=== PATIENT | female | born 1960 | race Caucasian/White ===

== ENCOUNTER → 2023-03-19 | Day surgery (SDC) | payer OTHER ==
[~2023-03-19] MED LIST: Lidocaine 1% PF 5 ML VIAL ONE; Sodium Bicarbonate 2.5 MEQ/5 ML VIAL ONE
== END ==
LOC: ULT 12:35
PROVIDERS: ATTEND Internal Medicine
PROC: 07JN3ZZ Inspection of Lymphatic, Percutaneous Approach (ICD-10-PCS; principal; 2023-03-19)
DX: C80.1 Malignant (primary) neoplasm, unspecified (principal); C78.7 Secondary malignant neoplasm of liver and intrahepatic bile duct; K76.89 Other specified diseases of liver; K86.89 Other specified diseases of pancreas; R22.32 Localized swelling, mass and lump, left upper limb; Z98.51 Tubal ligation status; Z98.890 Other specified postprocedural states; Z87.59 Personal history of other complications of pregnancy, childbirth and the puerperium; Z79.899 Other long term (current) drug therapy
CPT/HCPCS: 10005; 88173; 88341; 88342

== ENCOUNTER 2023-04-05 10:09 | Day surgery (SDC) | payer MEDICARE ==
[2023-04-04 11:28] VITALS: BMI 28.4
[2023-04-05] MEDS ORDERED: Bupivacaine 0.25% HCL 30 ML VIAL ONE (12:16)
[2023-04-05] MEDS ORDERED: EPINEPHrine 1 MG/10 ML Abboject SYRINGE ONE (12:16)
[2023-04-05] MEDS ORDERED: Lidocaine 1% PF 5 ML VIAL ONE (12:16)
[2023-04-05] MEDS ORDERED: fentaNYL 50 mcg/mL 1 mL Vial ONE (12:32)
[2023-04-05] MEDS ORDERED: Midazolam HCl 2 mg/2 ml Vial ONE (12:32)
[2023-04-05] MEDS ORDERED: Ketorolac Tromethamine 30 MG/ML VIAL ONE (12:44)
[2023-04-05] MEDS ORDERED: PROPOFOL 200 MG/20 ML VIAL ONE (12:44)
[2023-04-05] MEDS ORDERED: Ondansetron PF 4 MG/2 ML Vial ONE (12:44)
== END 2023-04-05 14:02 | disposition home or self-care (01) ==
LOC: SDC 10:09
PROVIDERS: ATTEND Surgery
PROC: 0JH60WZ Insertion of Totally Implantable Vascular Access Device into Chest Subcutaneous Tissue and Fascia, Open Approach (ICD-10-PCS; principal; 2023-04-05)
DX: C56.1 Malignant neoplasm of right ovary (principal)
CPT/HCPCS: 36561; 71045; C1788; J3010; J0171; J1642; J1885; J2250; J2405; J2704; S0020

== ENCOUNTER 2023-06-04 08:51 | Outpatient (CLI) | payer MEDICARE ==
[2023-06-04] MEDS ORDERED: Iopamidol 370 76% 100 ML VIAL ONE (12:09)
== END 2023-06-04 08:52 | disposition home or self-care (01) ==
LOC: CT 08:51
PROVIDERS: ATTEND Internal Medicine
DX: C56.1 Malignant neoplasm of right ovary (principal); C22.9 Malignant neoplasm of liver, not specified as primary or secondary; R59.1 Generalized enlarged lymph nodes; K76.9 Liver disease, unspecified
CPT/HCPCS: 71260; 74177

== ENCOUNTER 2023-06-26 08:28 | Day surgery (SDC) | payer MEDICARE ==
[2023-06-26 08:51] LABS: INR-International Normal Ratio 0.9; PTT 30.1 sec (22.9-36.1)
[2023-06-26] MEDS ORDERED: Midazolam HCl 2 mg/2 ml Vial ONE (10:17)
[2023-06-26] MEDS ORDERED: Sodium Bicarbonate 2.5 MEQ/5 ML VIAL ONE (10:17)
[2023-06-26] MEDS ORDERED: fentaNYL 50 mcg/mL 1 mL Vial ONE (10:17)
[2023-06-26 12:52] VITALS: BP 125/80; BMI 29.1
[2023-06-26] MEDS ORDERED: FLU VACC QS2023-24(6MOS UP)/PF 60 MCG/0.5 ML SYRINGE IM ONE (13:15)
== END 2023-06-26 13:50 | disposition home or self-care (01) ==
LOC: CT 08:28
PROVIDERS: ATTEND Internal Medicine
DX: S24.114A Complete lesion at T11-T12 level of thoracic spinal cord, initial encounter (principal); C56.1 Malignant neoplasm of right ovary; C79.51 Secondary malignant neoplasm of bone; Z79.899 Other long term (current) drug therapy
CPT/HCPCS: 20225; 77012; 85610; 85730; 88333; 88334; 90686; G0008; 36415; 88112; 88307; 88342; 90471; J2250; J3010

== ENCOUNTER 2023-08-16 12:34 | Day surgery (SDC) | payer MEDICARE ==
[~2023-08-16 12:34] MED LIST changes: -Lidocaine 1% PF 5 ML VIAL ONE; +PEGFILGRASTIM-JMDB 6 MG/0.6 ML SYRINGE SQ SCH; -Sodium Bicarbonate 2.5 MEQ/5 ML VIAL ONE; +Sodium Chloride 0.9% 1,000 ML IV SCH
[2023-08-16 13:10] VITALS: BP 108/81; TEMP 98.5
[2023-08-16] MEDS ORDERED: PEGFILGRASTIM-JMDB 6 MG/0.6 ML SYRINGE ONE (14:01)
== END 2023-08-16 14:52 | disposition home or self-care (01) ==
LOC: ONC/OP 12:34
PROVIDERS: ATTEND Internal Medicine
DX: C56.1 Malignant neoplasm of right ovary (principal); R97.8 Other abnormal tumor markers
CPT/HCPCS: 96360; 96372; Q5108; J1642

== ENCOUNTER 2023-09-18 06:43 | Outpatient (CLI) | payer MEDICARE | END 2023-09-18 06:44 | disposition home or self-care (01) | LOC: CT 06:43 | PROVIDERS: ATTEND Internal Medicine | DX: C56.1 Malignant neoplasm of right ovary (principal); R97.1 Elevated cancer antigen 125 [CA 125]; R91.1 Solitary pulmonary nodule | CPT/HCPCS: 71260; 74177; J1642 ==

== ENCOUNTER 2023-11-05 11:33 | Outpatient (CLI) | payer MEDICARE | END 2023-11-05 11:34 | disposition home or self-care (01) | LOC: SCSMRI 11:33 | PROVIDERS: ATTEND Radiology Radiation Oncology | DX: C78.7 Secondary malignant neoplasm of liver and intrahepatic bile duct (principal); M53.9 Dorsopathy, unspecified; K76.9 Liver disease, unspecified; R60.0 Localized edema | CPT/HCPCS: 72157; 74183 ==

== ENCOUNTER 2024-02-20 06:39 | Outpatient (CLI) | payer OTHER | END 2024-02-20 06:40 | disposition home or self-care (01) | LOC: CT 06:39 | PROVIDERS: ATTEND Radiology Radiation Oncology | DX: C56.9 Malignant neoplasm of unspecified ovary (principal); C78.7 Secondary malignant neoplasm of liver and intrahepatic bile duct; K76.0 Fatty (change of) liver, not elsewhere classified; R59.0 Localized enlarged lymph nodes; R18.8 Other ascites | CPT/HCPCS: 71260; 74177; J1642 ==

== ENCOUNTER 2024-02-24 13:23 | Outpatient (CLI) | payer OTHER | END 2024-02-24 13:24 | disposition home or self-care (01) | LOC: ULT 13:23 | PROVIDERS: ATTEND Internal Medicine | DX: Z51.11 Encounter for antineoplastic chemotherapy (principal); C56.1 Malignant neoplasm of right ovary; I42.7 Cardiomyopathy due to drug and external agent; I51.9 Heart disease, unspecified; Z79.899 Other long term (current) drug therapy | CPT/HCPCS: 93306 ==

== ENCOUNTER 2024-05-20 09:15 | Outpatient (CLI) | payer OTHER ==
[2024-05-20] MEDS ORDERED: Iopamidol 370 76% 100 ML VIAL ONE (11:28)
== END 2024-05-20 09:16 | disposition home or self-care (01) ==
LOC: CT 09:15
PROVIDERS: ATTEND Internal Medicine
DX: C56.9 Malignant neoplasm of unspecified ovary (principal); R91.8 Other nonspecific abnormal finding of lung field; J90 Pleural effusion, not elsewhere classified; R59.0 Localized enlarged lymph nodes; N13.30 Unspecified hydronephrosis; K76.89 Other specified diseases of liver; K74.60 Unspecified cirrhosis of liver
CPT/HCPCS: 71260; 74177; J1642; Q9967

== ENCOUNTER 2024-06-03 09:32 | Outpatient (CLI) | payer OTHER | END 2024-06-03 09:33 | disposition home or self-care (01) | LOC: RAD 09:32 | PROVIDERS: ATTEND Internal Medicine | DX: R06.00 Dyspnea, unspecified (principal) | CPT/HCPCS: 71046 ==

== ENCOUNTER 2024-06-04 10:15 | Day surgery (SDC) | payer OTHER ==
[2024-06-04] MEDS ORDERED: Sodium Bicarbonate 2.5 MEQ/5 ML SDV ONE (10:52)
[2024-06-04] MEDS ORDERED: Lidocaine 1% PF 5 ML VIAL ONE ×2 (10:52→11:18)
== END 2024-06-04 12:15 | disposition home or self-care (01) ==
LOC: ULT 10:15
PROVIDERS: ATTEND Internal Medicine
PROC: 0W9G30Z Drainage of Peritoneal Cavity with Drainage Device, Percutaneous Approach (ICD-10-PCS; principal; 2024-06-04)
DX: R18.8 Other ascites (principal); C56.1 Malignant neoplasm of right ovary; Z98.51 Tubal ligation status; Z98.890 Other specified postprocedural states; F12.90 Cannabis use, unspecified, uncomplicated; Z79.899 Other long term (current) drug therapy
CPT/HCPCS: 49083

== ENCOUNTER 2024-06-05 12:30 | Day surgery (SDC) | payer OTHER ==
[2024-06-04 13:43] VITALS: BMI 26.6
[2024-06-05 15:50] LABS: Pleural Fluid, Protein 3.1 g/dL
[2024-06-05 16:16] LABS: Fluid, pH - Pleural Fld Greater than 7.500 (7.60 - 7.66)
[2024-06-05 16:44] LABS: RBC Count-Automated (BF) 832 /cu.mm; WBC/Nucleated-Auto (BF) 144 /cu.mm
[2024-06-05 17:52] LABS: BF Color Yellow; Body Fluid Source Thoracentesis Fluid; Clarity Hazy (Clear); Tube # EDTA
[2024-06-05 17:59] LABS: BF Segmented Neutrophils 9 %; Cell Count Non Hematic 59 %; Lymphocytes 32 %
== END 2024-06-05 14:35 | disposition home or self-care (01) ==
LOC: SDC 12:30
PROVIDERS: ATTEND Internal Medicine
PROC: 0W993ZZ Drainage of Right Pleural Cavity, Percutaneous Approach (ICD-10-PCS; principal; 2024-06-05)
DX: J90 Pleural effusion, not elsewhere classified (principal); C56.9 Malignant neoplasm of unspecified ovary; Z90.49 Acquired absence of other specified parts of digestive tract; Z98.890 Other specified postprocedural states; Z90.710 Acquired absence of both cervix and uterus; Z79.899 Other long term (current) drug therapy; R84.6 Abnormal cytological findings in specimens from respiratory organs and thorax
CPT/HCPCS: 32554; 71045; 82150; 82945; 83615; 83986; 84157; 84478; 85060; 87070; 87116; 87205; 87206; 88112; 88305; 88341; 88342; 89051

== ENCOUNTER 2024-06-25 12:51 | Day surgery (SDC) | payer OTHER ==
[2024-06-25] MEDS ORDERED: Lidocaine 1% PF 5 ML VIAL ONE (13:05)
[2024-06-25 13:28] LABS: INR-International Normal Ratio 1.2
[2024-06-25 13:29] LABS: PTT 36.2 sec (22.9-36.1)
== END 2024-06-25 14:15 | disposition home or self-care (01) ==
LOC: ULT 12:51
PROVIDERS: ATTEND Internal Medicine
PROC: 0W9G30Z Drainage of Peritoneal Cavity with Drainage Device, Percutaneous Approach (ICD-10-PCS; principal; 2024-06-25)
DX: R18.8 Other ascites (principal); C56.1 Malignant neoplasm of right ovary; Z98.51 Tubal ligation status; Z98.890 Other specified postprocedural states
CPT/HCPCS: 36415; 49083; 85610; 85730

== ENCOUNTER 2024-07-06 15:18 | Outpatient (CLI) | payer OTHER | END 2024-07-06 15:19 | disposition home or self-care (01) | LOC: RAD 15:18 | PROVIDERS: ATTEND Internal Medicine | DX: R06.00 Dyspnea, unspecified (principal) | CPT/HCPCS: 71046 ==

== ENCOUNTER → 2024-07-16 | Day surgery (SDC) | payer OTHER ==
[~2024-07-16] MED LIST changes: +Lidocaine 1% PF 5 ML VIAL ONE; -PEGFILGRASTIM-JMDB 6 MG/0.6 ML SYRINGE SQ SCH; -Sodium Chloride 0.9% 1,000 ML IV SCH
== END ==
LOC: ULT 12:29
PROVIDERS: ATTEND Internal Medicine
PROC: 0W9G30Z Drainage of Peritoneal Cavity with Drainage Device, Percutaneous Approach (ICD-10-PCS; principal; 2024-07-16)
DX: R18.8 Other ascites (principal); C56.1 Malignant neoplasm of right ovary
CPT/HCPCS: 49083

== ENCOUNTER 2024-07-28 06:47 | Outpatient (CLI) | payer OTHER | END 2024-07-28 06:48 | disposition home or self-care (01) | LOC: CT 06:47 | PROVIDERS: ATTEND Internal Medicine | DX: C56.1 Malignant neoplasm of right ovary (principal); R97.8 Other abnormal tumor markers; J90 Pleural effusion, not elsewhere classified; R91.8 Other nonspecific abnormal finding of lung field | CPT/HCPCS: 71260; 74177; J1642 ==

== ENCOUNTER → 2024-08-06 | Day surgery (SDC) | payer OTHER | LOC: ULT 12:22 | PROVIDERS: ATTEND Internal Medicine | PROC: 0W9G30Z Drainage of Peritoneal Cavity with Drainage Device, Percutaneous Approach (ICD-10-PCS; principal; 2024-08-06) | DX: R18.8 Other ascites (principal); C56.1 Malignant neoplasm of right ovary; D69.6 Thrombocytopenia, unspecified; N13.30 Unspecified hydronephrosis; C79.60 Secondary malignant neoplasm of unspecified ovary; Z98.51 Tubal ligation status; Z98.890 Other specified postprocedural states; Z79.899 Other long term (current) drug therapy; I08.3 Combined rheumatic disorders of mitral, aortic and tricuspid valves | CPT/HCPCS: 49083 ==

== ENCOUNTER 2024-08-13 12:33 | Outpatient (CLI) | payer OTHER | END 2024-08-13 12:34 | disposition home or self-care (01) | LOC: ULT 12:33 | PROVIDERS: ATTEND Urology | DX: N28.89 Other specified disorders of kidney and ureter (principal); N13.30 Unspecified hydronephrosis; R18.8 Other ascites | CPT/HCPCS: 76770 ==

== ENCOUNTER 2024-08-25 08:50 | Day surgery (SDC) | payer OTHER ==
[2024-08-25 09:00] LABS: #Basophils Less than 0.03 10x3/uL (0.0-0.2); #Eosinophils Less than 0.03 10x3/uL (0.0-0.7); %Basophils 0.4 % (0.0-1.0); %Eosinophils 0.2 % (0.0-10.0); %Lymphocytes 14.6 % (21.0-51.0); %Monocytes 14.4 % (0.0-10.0); %Neutrophils 70.2 % (42.0-75.0); Hematocrit 41.2 % (36.0-47.0); Hemoglobin 13.8 g/dL (12.0-16.0); Mean Corpuscular HGB CONC 33.5 g/dL (32.0-36.0); Mean Corpuscular Hemoglobin 35.1 pg (27.0-31.0); Mean Corpuscular Volume 104.8 fL (78.0-98.0); Mean Platelet Volume 10.4 fL (7.4-10.4); Platelet Count 164 10x3/uL (130-400); RBC Distribution Width 17.2 % (11.5-14.5); Red Blood Cell (RBC) Count 3.93 mill/uL (4.20-5.40)
[2024-08-25 09:12] LABS: INR-International Normal Ratio 1.1; PTT 31.9 sec (22.9-36.1); Prothrombin Time 14.4 sec (12.0-14.7)
[2024-08-25] MEDS ORDERED: Lidocaine 1% PF 5 ML VIAL ONE (10:07)
== END 2024-08-25 10:56 | disposition home or self-care (01) ==
LOC: ULT 08:50
PROVIDERS: ATTEND Internal Medicine
PROC: 0W9G3ZZ Drainage of Peritoneal Cavity, Percutaneous Approach (ICD-10-PCS; principal; 2024-08-25)
DX: R18.8 Other ascites (principal); G62.9 Polyneuropathy, unspecified; C56.1 Malignant neoplasm of right ovary; D69.6 Thrombocytopenia, unspecified; N13.30 Unspecified hydronephrosis; Z87.59 Personal history of other complications of pregnancy, childbirth and the puerperium; Z78.0 Asymptomatic menopausal state; Z90.49 Acquired absence of other specified parts of digestive tract; Z98.51 Tubal ligation status; Z79.899 Other long term (current) drug therapy
CPT/HCPCS: 49083; 85025; 85610; 85730

== ENCOUNTER 2024-09-04 09:10 | Outpatient (CLI) | payer OTHER | END 2024-09-04 09:11 | disposition home or self-care (01) | LOC: SCSMRI 09:10 | PROVIDERS: ATTEND Internal Medicine | DX: C56.1 Malignant neoplasm of right ovary (principal); R97.8 Other abnormal tumor markers; D32.0 Benign neoplasm of cerebral meninges | CPT/HCPCS: 70553; 76376 ==

== ENCOUNTER → 2024-09-30 | Day surgery (SDC) | payer OTHER ==
[2024-09-29 13:04] VITALS: BMI 25.7
[2024-09-30 13:03] LABS: RBC Count-Automated (BF) 3068 /cu.mm; WBC/Nucleated-Auto (BF) 83 /cu.mm
[2024-09-30 13:04] LABS: BF Color Pink; Body Fluid Source Thoracentesis Fluid; Clarity Cloudy/Turbid (Clear); Tube # EDTA
[2024-09-30 13:26] LABS: BF Segmented Neutrophils 20 %; Cell Count Non Hematic 36 %; Lymphocytes 44 %
[2024-09-30 13:32] LABS: Pleural Fluid, Protein 2.9 g/dL
[2024-09-30 14:26] LABS: Fluid, pH - Pleural Fld Greater than 7.500 (7.60 - 7.66)
== END ==
LOC: SDC 10:27
PROVIDERS: ATTEND Internal Medicine
DX: C78.2 Secondary malignant neoplasm of pleura (principal); J91.0 Malignant pleural effusion; Z53.9 Procedure and treatment not carried out, unspecified reason; C56.1 Malignant neoplasm of right ovary; Z87.59 Personal history of other complications of pregnancy, childbirth and the puerperium; Z90.49 Acquired absence of other specified parts of digestive tract; Z90.710 Acquired absence of both cervix and uterus
CPT/HCPCS: 71045; 82150; 82945; 83615; 83986; 84157; 84478; 85060; 87116; 87206; 88112; 88305; 88341; 88342; 89051

== ENCOUNTER 2024-10-08 13:21 | Outpatient (CLI) | payer OTHER | END 2024-10-08 13:22 | disposition home or self-care (01) | LOC: ULT 13:21 | PROVIDERS: ATTEND Internal Medicine | DX: M79.89 Other specified soft tissue disorders (principal); C56.1 Malignant neoplasm of right ovary; R97.8 Other abnormal tumor markers; I82.411 Acute embolism and thrombosis of right femoral vein; I82.431 Acute embolism and thrombosis of right popliteal vein ==

== ENCOUNTER 2024-12-17 12:57 | Day surgery (SDC) | payer OTHER ==
[2024-12-17] MEDS ORDERED: Lidocaine 1% PF 5 ML VIAL ONE (13:23)
[2024-12-17] MEDS ORDERED: Sodium Bicarbonate 2.5 MEQ/5 ML SDV ONE (13:55)
[2024-12-17] MEDS ORDERED: Ondansetron ODT 4 MG TAB ONE (13:55)
[2024-12-17] MEDS ORDERED: Albumin 25% 100 ML ONE (14:43)
== END 2024-12-17 16:15 | disposition home or self-care (01) ==
LOC: ULT 12:57
PROVIDERS: ATTEND Internal Medicine
PROC: 0W9G3ZZ Drainage of Peritoneal Cavity, Percutaneous Approach (ICD-10-PCS; principal; 2024-12-17)
DX: R18.8 Other ascites (principal); C56.1 Malignant neoplasm of right ovary; Z98.51 Tubal ligation status; Z87.59 Personal history of other complications of pregnancy, childbirth and the puerperium; Z90.49 Acquired absence of other specified parts of digestive tract; Z79.899 Other long term (current) drug therapy
CPT/HCPCS: 49083; J1642; P9047; Q0162